=== PATIENT | male | born 2000 | race African-American/Black ===

== ENCOUNTER 2025-01-13 12:38 | Outpatient (CLI) | payer OTHER, SELFPAY ==
--- OUTSIDE RECORDS SUMMARY | 2025-01-13 13:49 | XMS_ITS | Encounter Summary ---
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 Gender Identity Not on file Sexual Orientation Not on file documented as of this encounter Plan of Treatment Not on file documented as of this encounter Visit Diagnoses Not on filedocumented in this encounter Additional Health Concerns Infection Onset Date Last Indicated Resolved Time COVID-19 Rule Out 09/27/2024 09/27/2024 09/27/2024 2:01 PM POWER PLANT MECHANIC documented as of this encounter Care Teams Investment Associate Relationship Specialty Start Date End Date Ricardo Pagan MD [place] [address] PCP - General FAMILY PRACTICE 06/02/20 documented as of this encounter
--- OUTSIDE RECORDS SUMMARY | 2025-01-13 13:49 | XMS_ITS | Encounter Summary ---
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
--- OUTSIDE RECORDS SUMMARY | 2025-01-13 13:49 | XMS_ITS | Clinical Summary ---
Author Organization [facility] Address [address] [place] [address] Care Team Providers Care Plant Sprayer Name Role Phone Ricardo Pagan MD Primary Care Provider [phone] Source Comments [facility] [employer],non-owned Affiliates and Associated Physician Practices is amultiple site organization consisting of ambulatory clinics and hospital sitesin [place], [place], [place] and [place]. This disclosure is being madepursuant to the Care Everywhere program and may not contain all information available regarding this patient. Last updated 18.[facility] [employer] Active Problems Problem Noted Date Diagnosed Date Concussion 07/31/2017 Head ache 07/31/2017 Social History Tobacco Use Types Packs/Day Years Used Date Smoking Tobacco: Never Assessed Sex and Gender Information Value Date Recorded Sex Assigned at Not on file Gender Identity Not on file Sexual Orientation Not on file Last Filed Vital Signs Vital Sign Reading Time Taken Comments Blood Pressure 104/72 07/17/2017 6:28 AM CDT per pcp Pulse 62 07/17/2017 6:28 AM CDT per p cp Temperature 37.1 C (98.7 F) 07/17/2017 6:28 AM CDT per pcp Respiratory Rate - - Oxygen Saturation - - Inhaled Oxygen Concentration - - Weight 53.1 kg (117 lb) 07/17/2017 6:28 AM CDT p er pcp Height 171.5 cm (5' 7.5 ) 07/17/2017 6:28 AM CDT per pcp Body Mass Index 18.05 07/17/2017 6:28 AM CDT Plan of Treatment Health Maintenance Due Date Last Done Comments HIV SCREENING 2015 HPV VACCINE (1 - Male 3-dose series) 2015 HEPATITIS C SCREENING 08/27/2018 DTAP/TDAP/TD VACCINES (1 - Tdap) 2019 HEPATITIS B VACCINE (1 of 3 - 19+ 3-dose series) 2019 COVID-19 VACCINE (2023-2 5 season) 2024 INFLUENZA VACCINE (#1) 2024 DEPRESSION SCREENING 10/14/2024 ZOSTER VACCINE (1 of 2) 2050 HIB VACCINE Aged Out No longer eligi ble based on patient's age to complete this topic MENINGOCOCCAL (Group B) VACC INE SHARED DECISION-MAKING Aged Out No longer eligibl e based on patient's age to complete this topic MENINGOCOCCAL GROUPS A/C/Y/W VACCINE Aged Out No longer eligible b ased on patient's age to complete this topic PNEUMOCOCCAL VACCINE Aged Out No long er eligible based on patient's age to complete this topic Care Teams Plant Sprayer Relationship Specialty Start Date End Date Ricardo Pagan MD [address] [place] [phone] PCP - General Family Medicine 07/17/17
--- OUTSIDE RECORDS SUMMARY | 2025-01-13 13:49 | XMS_ITS | Encounter Summary ---
Author Organization [facility] Address [facility] [place] [address] Care Team Providers Care Blending Coordinator Name Role Phone Ricardo Pagan MD Primary Care Provider Encounter Details Date Type Department Care Team (Late st Contact Info) Description 01/05/2025 Transcribe Orders [facility] Pre Access Team [address] [place] [address] Morteza Bucio, PA [address] [place] [id number] Social History Tobacco Use Types Packs/Day Years Used Date Smoking Tobacco: Former Cigarettes Electronic Cigarettes Smokeless Tobacco: Never Alcohol Use Standard Drinks/Week Comments Yes 0 (1 standard drink = 0.6 oz pur e alcohol) Sex and Gender Information Value Date Recorded Sex Assigned at Not on file 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
--- OUTSIDE RECORDS SUMMARY | 2025-01-13 13:50 | XMS_ITS | Clinical Summary ---
Author Organization [facility] Address [facility] [place] [address] Care Team Providers Care Falafel Cart Cook Name Role Phone Ricardo Pagan MD Primary Care Provider Allergies Active Allergy Reactions Criticality Noted Date Comments Mupirocin Rash Low 01/21/2020 Clarithromycin Unknown 06/19/2016 Codeine Vomiting 06/06/2020 Acetaminophen-Codeine Vomiting 06/13/2020 Medications ibuprofen (MOTRIN) 600 MG tablet Take 1 tablet (600 mg total) by mouth every 8 (eight) hours as needed for Pain. 20 tablet 5 Active ibuprofen (MOTRIN) 400 MG tablet Take 1 tablet (400 mg total) by mouth every 6 (six) hours as needed for Pain. 01/01/20 25 Discontinu ed(Formula ry change) Active Problems Problem Noted Date Diagnosed Date Closed displaced fracture of base of fifth metacarpal bone of right hand, initial encounter 06/07/2020 Encounters Date Type Department Care Team Description 01/05/2025 Transcribe Orders [facility] Pre Access Team [address] [place] [address] Morteza Bucio PA 01/02/2025 10:49 PM CDT - 01/02/2025 11:47 PM CDT Emergency [id number] [place] [address] Celio Whitlock MD Breathing Problem Discharge Disposition: Home or Self Care (Routine Discharge) 01/02/2025 Travel 12/31/2024 10:54 AM CDT - 12/31/2024 12:58 PM CDT Emergency [facility] [address] [place] [address] Speedy Crandall MD Shoulder Pain (Shoulder pain, heaviness in chest, low back pain and small knot on back of head) Discharge Disposition: Home or Self Care (Routine Discharge) 12/31/2024 Travel from Last 3 Months Family History Medical History Relation Comments No Known Problems Brother No Known Problems Father No Known Problems Maternal Grandfather No Known Problems Maternal Grandmother No Known Problems Mother No Known Problems Paternal Grandfather No Known Problems Paternal Grandmother No Known Problems Sister 1 No Known Problems Sister 2 Relation Status Comments Brother Alive Father Other Maternal Grandfather Other Maternal Grandmother Other Mother Alive Paternal Grandfather Other Paternal Grandmother Other Sister 1 Sister 2 Alive Social History Tobacco Use Types Packs/Day Years Used Date Smoking Tobacco: Former Cigarettes Electronic Cigarettes Smokeless Tobacco: Never Tobacco Cessation:Counseling Given: Not Answered Alcohol Use Standard Drinks/Week Comments Yes 0 (1 standard drink = 0.6 oz pur e alcohol) Sex and Gender Information Value Date Recorded Sex Assigned at Not on file 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 Gender Identity Not on file Sexual Orientation Not on file Last Filed Vital Signs Vital Sign Reading Time Taken Comments Blood Pressure 127/98 01/02/2025 11:04 PM CDT Pulse 82 01/02/2025 11:04 PM CDT Temperature 36.3 C (97.3 F) 01/02/2025 11:04 PM CDT Respiratory Rate 17 01/02/2025 11:04 PM CDT Oxygen Saturation 100% 01/02/2025 11:04 PM CDT Inhaled Oxygen Concentration - - Weight 53.5 kg (118 lb) 01/02/2025 11:04 PM CDT Height 175.3 cm (5' 9 ) 01/02/2025 11:04 PM CDT Body Mass Index 17.43 01/02/2025 11:04 PM CDT Plan of Treatment Health Maintenance Due Date Last Done Comments Annual Physical 2003 DTaP, Tdap and Td Vaccines (6 - Tdap) 2011 07/25/2006, 02/24/2002, 05/29/2001, Additional history exists Hepatitis C 2018 Hepatitis B Vaccines (1 of 3 - 19+ 3-dose series) 2019 COVID-19 Vaccine ( season) 2024 HPV Vaccines Completed 01/27/2015, 05/29/2012 Meningococcal Vaccine Aged Out 01/27/2015 No leonard juan eligible based on patient's age to complete this topic Meningococcal B Vaccine Aged Out No l onger eligible based on patient's age to complete this topic Pneumococcal Vaccine: Pediatrics (0 to 5 Years) and At-Risk Patients (6 to 64 Years) Aged Out No longer eligible based on patient's age to complete this topic RSV Immunizations Under 20 Months Aged Out No longer eligible based on patient's age to complete this topic Procedures Procedure Name Priority Date/Time Associated Diagnosis Comments D-DIMER, QUANTITATIVE STAT 01/02/2025 11:21 PM CDT HC URINALYSIS AUTO W/MICRO STAT 01/02/2025 11:13 PM CDT PRO-BRAIN NATRIURETIC PEPTIDE STAT 12/31/2024 11:32 AM CDT TROPONIN, QUANT STAT 12/31/2024 11:32 AM CDT COMPREHENSIVE METABOLIC PANEL STAT 12/31/2024 11:32 AM CDT CBC W/DIFF AUTOMATED STAT 12/31/2024 11:32 AM CDT XR SHOULDER LT MIN 2V STAT 12/31/2024 11:27 AM CDT XR CHEST PORTABLE STAT 12/31/2024 11: 27 AM CDT ECG 12-LEAD Routine 12/31/2024 11:20 AM CDT from Last 3 Months Results * D-DIMER, QUANTITATIVE (01/02/2025 11:21 PM CDT) D-DIMER <215 0 - 500 ng{FEU}/mL 01/02/2025 11:40 PM CDT [facility] Comment: D-Dimer values less than or equal to 500 ng/mL FEU have a negative predictive value of >95% for exclusion of deep vein thrombosis and pulmonary embolism. In patients over 50 (who tend to have higher normal baseline D-Dimer values), recent studies suggest age-adjusted D-Dimer cutoff values (calculated as: age [years] x 10 ng/mL) result in equivalent outcomes and no additional false negative findings. 01/02/2025 11:2 1 PM CDT us Celio Whitlock MD LABORATORY Final Result [id number] [place] [id number], * (ABNORMAL) URINALYSIS (01/02/2025 11:13 PM CDT) COLOR (U) YELLOW 01/02/2025 11:37 PM CDT [facility] TRANSPARENCY CLEAR 01/02/2025 11:37 PM CDT [facility] SPECIFIC GRAVITY (U) 1.030(H) 1.000 - 1.025 01/02/2025 11:37 PM CDT [facility] Comment:EQUAL TO OR GREATER THAN U PH 5.5 5.0 - 8.0 01/02/2025 11:37 PM CDT [facility] LEUKOCYTES (U) 1+(A) NEGATIVE 01/02/2025 11:37 PM CDT [facility] NITRITES NEGATIVE NEGATIVE 01/02/2025 11:37 PM CDT [facility] PROTEIN RANDOM (U) TRACE(A) NEGATIVE 01/02/2025 11:37 PM CDT [facility] GLUCOSE (U) NEGATIVE NEGATIVE 01/02/2025 11:37 PM CDT [facility] KETONES MG/DL (U) TRACE(A) NEGATIVE 01/02/2025 11:37 PM CDT [facility] UROBILINOGEN 0.2 <1.0 EU/DL 01/02/2025 11:37 PM CDT [facility] BILIRUBIN (U) NEGATIVE NEGATIVE 01/02/2025 11:37 PM CDT [facility] BLOOD (U) TRACE(A) NEGATIVE 01/02/2025 11:37 PM CDT [facility] WBC/HPF 0-5 0 - 5 /HPF 01/02/2025 11:37 PM CDT [facility] RBC/HPF 0-5 0 - 5 /HPF 01/02/2025 11:37 PM CDT [facility] MUCUS PRESENT 01/02/2025 11:37 PM CDT [facility] URINE SPECIMEN OBTAINED BY CLEAN CATCH PROCEDURE / Unknown 01/02/2025 11:13 PM CDT Celio Whitlock MD URINE ORDERABLES Final Result Performing Organization Address [facility] de Phone Number [address] [place] [address], * PRO-BRAIN NATRIURETIC PEPTIDE (12/31/2024 11:32 AM CDT) PRO-B TYPE NATRIURETIC PEPTIDE 19 <125 PG/ML 12/31/2024 12:06 PM CDT [facility] Comment: CUT POINTS ESTABLISHED BY INTERNATIONAL COLLABORATIVE ON NT PROBNP (ICON) STUDY (2006). AGE INDEPENDENT: <300 PG/ML HAS A 99% NEGATIVE PREDICTIVE VALUE FOR EXCLUDING ACUTE CHF <50 YEARS: >450 PG/ML IS CONSISTENT WITH ACUTE CHF 50-75 YEARS: >900 PG/ML IS CONSISTENT WITH ACUTE CHF >75 YEARS: >1800 PG/ML IS CONSISTENT WITH ACUTE CHF IN PATIENTS WITH RENAL INSUFFICIENCY (GFR <60), >1200 PG/ML YIELDS A DIAGNOSTIC SENSITIVITY AND SPECIFICITY OF 89% AND 72% FOR ACUTE CHF. 12/31/2024 11:3 2 AM CDT Speedy Crandall MD LABORATORY Final Result Performing Organization Address [facility] Co de Phone Number [facility] [address] [place], [place] [address] [id number], * (ABNORMAL) COMPREHENSIVE METABOLIC PANEL (12/31/2024 11:32 AM CDT) SODIUM S/P/B 136 136 - 145 MMOL/L 12/31/2024 12:06 PM CDT [facility] POTASSIUM S/P/B 3.3(L) 3.5 - 5.1 MMOL/L 12/31/2024 12:06 PM CDT [facility] CHLORIDE S/P/B 100 98 - 107 MMOL/L 12/31/2024 12:06 PM CDT [facility] CO2 31.2 21.0 - 32.0 MMOL/L 12/31/2024 12:06 PM CDT [facility] GLUCOSE 107(H) 70 - 99 MG/DL 12/31/2024 12:06 PM CDT [facility] Comment: FASTING GLUCOSE 100 TO 125 MG/DL IS CONSISTENT WITH IMPAIRED FASTING GLUCOSE. FASTING GLUCOSE >125 MG/DL IS CONSISTENT WITH DIABETES. RANDOM GLUCOSE >200 MG/DL WITH HYPERGLYCEMIC SYMPTOMS IS CONSISTENT WITH DIABETES. PER ADA GUIDELINES BUN 15 6 - 24 MG/DL 12/31/2024 12:06 PM CDT [facility] CREATININE S/P/B 0.90 0.70 - 1.30 MG/DL 12/31/2024 12:06 PM CDT [facility] CALCIUM S/P/B 9.0 8.4 - 10.5 MG/DL 12/31/2024 12:06 PM CDT [facility] BILIRUBIN TOTAL S/P/B 0.3 0.2 - 1.0 MG/DL 12/31/2024 12:06 PM CDT [facility] Comment: THIS ASSAY IS NOT RECOMMENDED FOR PATIENTS UNDERGOING TREATMENT WITH ELTROMBOPAG DUE TO THE POTENTIAL FOR FALSELY ELEVATED RESULTS. ALKALINE PHOSPHATASE S/P/B 84 45 - 115 U/L 12/31/2024 12:06 PM CDT [facility] AST 11(L) 15 - 37 U/L 12/31/2024 12:06 PM CDT [facility] ALT 19 16 - 63 U/L 12/31/2024 12:06 PM CDT [facility] TOTAL PROTEIN S/P/B 7.6 6.4 - 8.2 G/DL 12/31/2024 12:06 PM CDT [facility] ALBUMIN S/P/B 4.1 3.4 - 5.0 G/DL 12/31/2024 12:06 PM CDT [facility] ANION GAP 4.8(L) 5.0 - 15.0 MMOL/L 12/31/2024 12:06 PM CDT [facility] OSMOLALITY (CALC) 283 MOSM/KG 025 12:06 PM CDT [facility] Comment:REFERENCE RANGE NOT ESTABLISHED GFR ESTIMATE >90 >89 ML/MIN/1. 73 M2 12/31/2024 12:06 PM CDT [facility] GFR NOTES GFR REFERENCE S: 12/31/2024 12:06 PM T [facility] Comment: THE ESTIMATED GFR IS CALCULATED USING THE 2020 CKD-EPI EQUATION. THE FOLLOWING CATEGORIES FOR GRADING RENAL FUNCTION ARE RECOMMENDED BY THE INTERNATIONAL SOCIETY OF NEPHROLOGY (KDIGO 2012 CLINICAL PRACTICE GUIDELINE). G1,NORMAL OR HIGH: >89 ml/min/1.73 m2 G2,MILDLY DECREASED: 60-89 ml/min/1.73 m2 G3A,MILDLY TO MODERATELY DECREASED: 45-59 ml/min/1.73 m2 G3B,MODERATELY TO SEVERELY DECREASED: 30-44 ml/min/1.73 m2 G4,SEVERELY DECREASED: 15-29 ml/min/1.73 m2 G5,KIDNEY FAILURE: <15 ml/min/1.73 m2 12/31/2024 11:3 2 AM CDT us Speedy Crandall MD LABORATORY Final Result [facility] [address] [place] [address], * CBC W/DIFF AUTOMATED (12/31/2024 11:32 AM CDT) WBC 10.62 4.00 - 10.80 x10'3/uL 12/31/2024 11:41 AM CDT [facility] RBC 4.83 4.50 - 6.10 x10'6/uL 12/31/2024 11:41 AM CDT [facility] HGB 13.9 13.0 - 18.0 G/DL 12/31/2024 11:41 AM CDT [facility] HCT 38.6 37.0 - 52.0 % 12/31/2024 11:41 AM CDT [facility] MCV 79.9 78.0 - 100.0 FL 12/31/2024 11:41 AM CDT [facility] MCH 28.8 27.0 - 31.0 PG 12/31/2024 11:41 AM CDT [facility] MCHC 36.0 33.0 - 36.0 G/DL 12/31/2024 11:41 AM CDT [facility] RDW 13.3 11.5 - 14.5 % 12/31/2024 11:41 AM CDT [facility] PLT 350 150 - 350 x10'3/uL 12/31/2024 11:41 AM CDT [facility] MPV 9.3 7.4 - 10.4 FL 12/31/2024 11:41 AM CDT [facility] CBC COMMENT NORMAL REFERENCE RANGE NOT ESTABLISHED FOR THE PROPORTIONAL LEUKOCYTE DIFFERENTIAL. 12/31/2024 11:41 AM CDT [facility] NEUTROPHILS % 61.9 % 12/31/2024 11:41 AM CDT [facility] LYMPHOCYTES % 26.3 % 12/31/2024 11:41 AM CDT [facility] MONOCYTES % 8.3 % 12/31/2024 11:41 AM CDT [facility] EOSINOPHILS % 2.8 % 12/31/2024 11:41 AM CDT [facility] BASOPHILS % 0.4 % 12/31/2024 11:41 AM CDT [facility] IMMATURE GRANS % 0.3 % 01/01/20 11:41 AM CDT [facility] NRBC % 0.0 % 12/31/2024 11:41 AM CDT [facility] ABS. NEUTROPHILS 6.58 1.60 - 8.30 x10'3/uL 12/31/2024 11:41 AM CDT [facility] ABS. LYMPHOCYTES 2.79 0.80 - 4.70 x10'3/uL 12/31/2024 11:41 AM CDT [facility] ABS. MONOCYTES 0.88 0.00 - 1.50 x10'3/uL 12/31/2024 11:41 AM CDT [facility] ABS. EOSINOPHILS 0.30 0.00 - 0.40 x10'3/uL 12/31/2024 11:41 AM CDT [facility] ABS. BASOPHILS 0.04 0.00 - 0.20 x10'3/uL 12/31/2024 11:41 AM CDT [facility] ABS. IMMATURE GRANULOCYTES 0.03 0.00 - 0.03 x10'3/uL 12/31/2024 11:41 AM CDT [facility] ABS. NUCLEATED RBC'S 0.00 0.00 - 0.01 x10'3/uL 12/31/2024 11:41 AM CDT [facility] 12/31/2024 11:3 2 AM CDT us Speedy Crandall MD LABORATORY Final Result [id number] [place] [address], * TROPONIN, QUANT (12/31/2024 11:32 AM CDT) TROPONIN I HIGH SENSITIVITY <4 0 - 76 ng/L 12/31/2024 12:06 PM CDT [facility] 12/31/2024 11:3 2 AM CDT us Speedy Crandall MD LABORATORY Final Result [facility] [address] [place] [address], * XR SHOULDER LT MIN 2V (12/31/2024 11:27 AM CDT) Anatomical Region Laterality Modality Shoulder Radiographic Mariely ging 12/31/2024 11:3 7 AM CDT Impressions 12/31/2024 11:37 AM CDT IMPRESSION: Unremarkable. Ordered By: SPEEDY CRANDALL Interpreted By: Yosef Barros MD, 12/31/2024 11:37 AM Narrative 12/31/2024 11:37 AM CDT [address] [place] [address] Examination: Left shoulder. Exam time: 1121 hours. Clinical history: Pain. No known injury. Comparison: None. Technique: Three views. Findings: No fracture, dislocation or other acute bony abnormality is identified. No other significant bone or joint abnormality is noted. The soft tissues are unremarkable. Procedure Note Yosef Barros MD - 12/31/[address] [place] [address] Examination: Left shoulder. Exam time: 1121 hours. Clinical history: Pain. No known injury. Comparison: None. Technique: Three views. Findings: No fracture, dislocation or other acute bony abnormality isidentified. No other significant bone or joint abnormality is noted. Thesoft tissues are unremarkable. IMPRESSION: Unremarkable. Ordered By: SPEEDY CRANDALL Interpreted By: Yosef Barros MD, 12/31/2024 11:37 AM Speedy Crandall MD GENERAL IMAGING Final Result * XR CHEST PORTABLE (12/31/2024 11:27 AM CDT) Anatomical Region Laterality Modality Chest Radiographic Mariely ging 12/31/2024 11:3 8 AM CDT Impressions 12/31/2024 11:38 AM CDT IMPRESSION: No significant change. No acute disease. Ordered By: SPEEDY CRANDALL Interpreted By: Yosef Barros MD, 12/31/2024 11:38 AM Narrative 12/31/2024 11:38 AM CDT [address] [place] [address] Examination: Portable chest. Exam time: 1120 hours. Clinical history: Chest pain/heaviness. Comparison: 09/27/2024. Technique: AP upright view. Findings: Allowing for differences in projection and rotation, the cardiomediastinal silhouette is stable and within normal limits. Pulmonary vascularity is within normal limits. The lungs and pleural spaces remain free of any active process. The visualized bony thorax is unremarkable. Procedure Note Yosef Barros MD - 12/31/[address] [place] [address] Examination: Portable chest. Exam time: 1120 hours. Clinical history: Chest pain/heaviness. Comparison: 09/27/2024. Technique: AP upright view. Findings: Allowing for differences in projection and rotation, thecardiomediastinal silhouette is stable and within normal limits. Pulmonaryvascularity is within normal limits. The lungs and pleural spaces remainfree of any active process. The visualized bony thorax is unremarkable. IMPRESSION: No significant change. No acute disease. Ordered By: SPEEDY CRANDALL Interpreted By: Yosef Barros MD, 12/31/2024 11:38 AM us Speedy Crandall MD GENERAL IMAGING Final Result * ECG 12 lead (12/31/2024 11:20 AM CDT) 12/31/2024 11:2 0 AM CDT Narrative [facility] - 12/31/2024 6:54 PM CDT [address] [place] [address] Test Date: 2024-12-31 Pat Name: JESSE OSMANI Department: 3 Room: EXAM 505 Gender: Male Donor Services Technician: : 2000 Requested By: SPEEDY CRANDALL Order Number: [id number] Reading MD: Rani Roberts Measurements Intervals [place] Rate: 68 P: 75 VA: 146 QRS: 77 QRSD: 94 T: 41 QT: 374 QTc: 400 Interpretive Statements SINUS RHYTHM Procedure Note Rani Roberts MD - 12/31/[address] [place] [address] Test Date: 2024-12-31 Pat Name: JESSE PIZARRO Department: 3 Room: EXAM 505 Gender: Male Donor Services Technician: : 2000 Requested By: SPEEDY CRANDALL Order Number: [id number] Reading MD: Rani Roberts Measurements Intervals [place] Rate: 68 P: 75 VA: 146 QRS: 77 QRSD: 94 T: 41 QT: 374 QTc: 400 Interpretive Statements SINUS RHYTHM us Speedy Crandall MD ECG ORDERABLES Final Result [facility] from Last [address] [facility] C/O PROVIDER SERVICES [place] [id number] Care Teams Falafel Cart Cook Relationship Specialty Start Date End Date Ricardo Pagan MD [address] [place] [address] PCP - General FAMILY PRACTICE 06/02/20
== END 2025-01-13 12:39 | disposition home or self-care (01) ==
PROVIDERS: PCP Physician Assistant; Visit Provider Physician Assistant
DX: J45.909 Unspecified asthma, uncomplicated (principal)
CPT/HCPCS: 94060